=== PATIENT | female | born 1955 | race Caucasian/White ===

== ENCOUNTER 2016-05-30 11:04 | Emergency (ER) | payer OTHER ==
[~2016-05-30] VITALS: Ht 154.9 cm; Wt 63.1 kg
[~2016-05-30 11:04] MED LIST: ADVIL200 MG PO; ALDACTONE25 MG PO; AMANTADINE100 MG NG; AMLODIPINE BESYL5 MG PO; ARTIFICIALS TEA30 ML LEFT EYE; ATROVENT H200 INHALA IH; AVENTYL,PAMELOR10 MG; B COMPLETE1 EACH PO; BUSPIRONE HCL10 MG PO; CALCIUM 500 MG1 EAC1 PO; CALCIUM 500 MG1 EACH PO; CAMPRAL333 MG PO; CATAPRES0.1 MG PO; CHLORPROMAZINE; CIPRO500 MG PO; CLONAZEPAM0.5 MG PO; CLONAZEPAM1 MG; CLONAZEPAM1 MG PO; CLONIDINE HCL0.1 MG NG; CLONIDINE HCL0.1 MG PO; CO Q-10100 MG PO; COLACE100 MG NG; COLACE100 MG PO; CORGARD20 MG PO; CYMBALTA60 MG PO; Chronulac,Cephulac,Enulose 20 gm/30 ml PO; DAILY VALUE1 EACH PO; DAILY VITAMIN1 EAC8 PO; DENTA 5000 PLUS51 GM DT; DESYREL 150 MG150 MG PO; DESYREL100 MG PO; DIAZEPAM2 MG PO; DIAZEPAM5 MG/1 M2 NG; DYRENIUM 50 MG50 MG; FEROSUL325 MG PO; FLEET ENEMA-AD118 ML PR; FLEXERIL10 MG PO; FOLIC ACID1 MG IV; FOLIC ACID1 MG PO; GENERLAC10 GM/15 M PO; HYDROCODON-ACE1 EAC5 PO; HYDROCODON-ACE1 EAC7 PO; HYDROPHOR OINT454 GM TP; K-DUR20 MEQ PO; KLONOPIN1 MG PO; KLOR-CON 1010 ME1 PO; LACTULOSE10 GM/151 NG; LASIX20 MG PO; LASIX40 MG NG; LEVAQUIN250 MG PO; LEVOTHYROXINE50 MCG PO; LEVOXYL50 MCG PO; LIDODERM 5% P1 PATCH TD; LISINOPRIL-HCT1 EAC3 PO; LOPRESSOR25 MG PO; MAGNESIUM GLUC200 MG PO; MAGNESIUM100 MG PO; METHADONE5 MG NG; METOPROLOL TART25 MG PO; NADOLOL20 MG PO; NATURAL BALANCE15 ML BOTH EYES; NEURONTIN300 MG PO; NITRO-BID30 GM TP; NORCO 10/3251 TABLET PO; ONE A DAY WOME EAC PO; OXYCODONE HCL5 M1 NG; OXYCODONE HCL5 M1 PO; PANTOPRAZOLE SO40 MG PO; PAROXETINE HCL40 MG PO; PAXIL10 MG PO; PAXIL40 MG PO; PHENERGAN25 MG PO; POTASSIUM CHLO10 ME3 PO; PREDNISONE10 MG PO; QUETIAPINE FUMA50 MG PO; SENNA8.6 MG NG; SENNA8.6 MG PO; SEROQUEL50 MG PO; SPIRONOLACTONE25 MG PO; SYMMETREL100 M1 PO; SYNTHROID50 MCG PO; THIAMINE HCL100 MG IV; THIAMINE HCL100 MG PO; TRAZODONE HCL100 MG PO; TRAZODONE HCL50 MG PO; VALIUM; VICODIN 5-3001 EACH PO; VITAMIN A10000 UNIT PO; VITAMIN D31000 UNIT PO; WELLBUTRIN SR150 MG PO; ZITHROMAX Z-PA250 MG PO
[2016-05-30 13:19] LABS: BASOPHIL COUNT 0.1 K/uL (0-0.1); EOSINOPHIL COUNT 0.3 K/uL (0-0.3); HEMATOCRIT 43.9 % (36.0-46.0); IMMATURE GRANULOCYTE (%) 0.2 % (0.0-0.7); IMMATURE GRANULOCYTE COUNT 0.2 K/uL; LYMPHOCYTE COUNT 2.5 K/uL (1.0-2.8); MCH 31.1 PG (29.0-34.0); MCHC 34.2 G/DL (30.0-36.0); MCV 91.1 FL (83-99); MEAN PLAT.VOLUME 11.4 uM^3 (9.5-12.4); MONOCYTE (%) 8.8 % (3-12); NEUTROPHIL (%) 64.3 % (45-76); PLATELET COUNT 212 K/uL (156-360); RBC DIS.WIDTH-CV 17.1 % (11.8-14.6); RBC DIS.WIDTH-SD 55.1 % (39-53); RED BLOOD COUNT 4.82 M/uL (3.80-5.20); WHITE BLOOD COUNT 10.9 K/uL (4.1-10.2)
[2016-05-30 13:29] LABS: CHLORIDE 105 mEq/L (99-109); POTASSIUM 4.3 mEq/L (3.7-5.4); SODIUM 142 mEq/L (136-147)
[2016-05-30 13:31] LABS: GLUCOSE 72 mg/dL (70-99); MAGNESIUM 2.2 mg/dL (1.3-2.7)
[2016-05-30 13:32] LABS: ANION GAP 7 MEQ/L (2-14)
[2016-05-30 13:33] LABS: TOTAL BILIRUBIN 0.5 mg/dL (0.0-1.0)
[2016-05-30 13:34] LABS: ALKALINE PHOSPHATASE 144 IU/L (3-129); SERUM ETHYL ALCOHOL < 10 mg/dL
[2016-05-30 13:35] LABS: GFR ESTIMATE (CALCULATED) > 59 mL/min/
[2016-05-30 13:36] LABS: UREA NITROGEN (BUN) 15 mg/dL (9-23)
[2016-05-30 14:12] LABS: HEMATOLOGY COMMENT 1 SMEAR COMPATIBLE
[2016-05-30 14:32] LABS: ERTH.SED.RATE 19 MM/HR (0-30)
[2016-05-30 14:53] LABS: AMPHETAMINE NEGATIVE (500 ng/mL); BARBITURATES NEGATIVE (200 ng/mL); BENZODIAZEPINES NEGATIVE (150 ng/mL); COCAINE NEGATIVE (150 ng/mL); INTERNAL CONTROLS VALID? YES; METHADONE NEGATIVE (200 ng/mL); METHAMPHETAMINE NEGATIVE (500 ng/mL); OPIATES (MORPHINE) NEGATIVE (100 ng/mL); OXYCODONE NEGATIVE (100 ng/mL); PHENCYCLIDINE NEGATIVE (25 ng/mL); PROPOXYPHENE NEGATIVE (300 ng/mL); THC CANNABINOIDS NEGATIVE (50 ng/mL); TRICYCLIC ANTIDEPRESSANTS NEGATIVE (300 ng/mL)
[2016-05-30 15:44] LABS: ADD MIUA? NO; BILIRUBIN NEGATIVE; BLOOD NEGATIVE; COLOR YELLOW ((YELLOW)); GLUCOSE (STRIP) NEGATIVE; KETONES NEGATIVE; LEUKOCYTES NEGATIVE; NITRITE NEGATIVE; PROTEIN (STRIP) NEGATIVE; SPECIFIC GRAVITY 1.008 (1.000-1.030); UROBILINOGEN 0.2 MG/DL (0.2-1.0)
[2016-05-30] MEDS ORDERED: VALIUM5 MG PO (16:42)
[2016-05-30] MEDS ORDERED: ANTIVERT25 MG PO (16:42)
[2016-05-30] MEDS ORDERED: PERCOCET 5/31 TABLET PO (16:42)
[2016-05-30 17:03] VITALS: BP 178/89
== END 2016-05-30 17:04 | disposition home or self-care (01) ==
LOC: EME 11:04
PROVIDERS: Physician Assistant
DX: G44.209 Tension-type headache, unspecified, not intractable (principal); G89.29 Other chronic pain; M50.30 Other cervical disc degeneration, unspecified cervical region; M62.830 Muscle spasm of back; R42 Dizziness and giddiness; Z87.820 Personal history of traumatic brain injury; Z91.81 History of falling; I10 Essential (primary) hypertension; E03.9 Hypothyroidism, unspecified; F17.200 Nicotine dependence, unspecified, uncomplicated
CPT/HCPCS: 70450; 73030; 80053; 81003; 82140; 82607; 83735; 84443; 85025; 85651; 93005; 99281; 99285; G0480

== ENCOUNTER 2017-05-08 13:50 | Emergency (ER) | payer OTHER ==
[~2017-05-08] VITALS: Ht 154.9 cm; Wt 67.0 kg
[~2017-05-08 13:50] MED LIST changes: +ANTIVERT25 MG PO; +PERCOCET 5/31 TABLET PO; +VALIUM5 MG PO
[2017-05-08 14:20] LABS: BASOPHIL (%) 1.1 % (0-1); BASOPHIL COUNT 0.1 K/uL (0-0.1); EOSINOPHIL (%) 4.9 % (0-5); EOSINOPHIL COUNT 0.3 K/uL (0-0.3); HEMATOCRIT 45.2 % (36.0-46.0); IMMATURE GRANULOCYTE (%) 0.2 % (0.0-0.7); LYMPHOCYTE (%) 38.6 % (15-42); LYMPHOCYTE COUNT 2.5 K/uL (1.0-2.8); MCH 31.8 PG (29.0-34.0); MCHC 35.4 G/DL (30.0-36.0); MCV 89.9 FL (83-99); MONOCYTE (%) 11.3 % (3-12); MONOCYTE COUNT 0.7 K/uL (0-0.8); NEUTROPHIL (%) 43.9 % (45-76); NEUTROPHIL COUNT 2.9 K/uL (1.8-6.4); PLATELET COUNT 247 K/uL (156-360); RBC DIS.WIDTH-SD 48.9 % (39-53); RED BLOOD COUNT 5.03 M/uL (3.80-5.20); WHITE BLOOD COUNT 6.6 K/uL (4.1-10.2)
[2017-05-08 14:33] LABS: CHLORIDE 107 mEq/L (99-109); SODIUM 140 mEq/L (136-147)
[2017-05-08 14:35] LABS: GLUCOSE 81 mg/dL (70-99); TOTAL PROTEIN 6.8 g/dL (6.4-8.3)
[2017-05-08 14:37] LABS: TOTAL BILIRUBIN 0.9 mg/dL (0.0-1.0)
[2017-05-08 14:38] LABS: ALKALINE PHOSPHATASE 107 IU/L (3-129)
[2017-05-08 14:39] LABS: CREATININE 0.9 mg/dL (0.6-1.3); GFR ESTIMATE (CALCULATED) > 59 mL/min/
[2017-05-08 14:40] LABS: AST (GOT) 34 IU/L (2-34); UREA NITROGEN (BUN) 7 mg/dL (9-23)
[2017-05-08 14:40] LABS: TROP-I INTERPRETATION NEGATIVE; TROPONIN-I < 0.01 ng/mL (0.0-0.30)
[2017-05-08 14:41] LABS: ALT (GPT) 23 IU/L (3-49)
[2017-05-08 14:42] LABS: CREATINE KINASE 97 IU/L (1-294); TOTAL CK 97 IU/L (1-294)
[2017-05-08 14:48] LABS: CK-MB 3.7 ng/mL (0.0-4.9); CKMB RELATIVE INDEX 3.8 (0.0-3.9)
[2017-05-08 15:30] LABS: APPEARANCE CLEAR ((CLEAR)); BILIRUBIN NEGATIVE; BLOOD NEGATIVE; COLOR YELLOW ((YELLOW)); GLUCOSE (STRIP) NEGATIVE; KETONES NEGATIVE; LEUKOCYTES NEGATIVE; NITRITE NEGATIVE; PROTEIN (STRIP) NEGATIVE; SPECIFIC GRAVITY 1.009 (1.000-1.030); UCUL ADDED? NO
[2017-05-08 17:13] VITALS: BP 152/81
== END 2017-05-08 17:13 | disposition home or self-care (01) ==
LOC: EME 13:50
PROVIDERS: Emergency Medicine
DX: R53.1 Weakness (principal); M54.6 Pain in thoracic spine; Z87.820 Personal history of traumatic brain injury; M79.7 Fibromyalgia; I10 Essential (primary) hypertension; J45.909 Unspecified asthma, uncomplicated; F32.9 Major depressive disorder, single episode, unspecified; E03.9 Hypothyroidism, unspecified; F41.9 Anxiety disorder, unspecified; R56.9 Unspecified convulsions; F17.200 Nicotine dependence, unspecified, uncomplicated; Z88.2 Allergy status to sulfonamides; Z88.8 Allergy status to other drugs, medicaments and biological substances
CPT/HCPCS: 70450; 71046; 72070; 80053; 81003; 82550; 82553; 84484; 85025; 86850; 86900; 86901; 93005; 99281; 99284

== ENCOUNTER 2017-11-12 14:52 | Emergency (ER) | payer SELFPAY ==
[~2017-11-12] VITALS: Ht 154.9 cm; Wt 58.9 kg
[2017-11-12 14:52] VITALS: BP 146/98
== END 2017-11-12 16:40 | disposition left against medical advice (07) ==
LOC: EME 14:52
DX: R53.1 Weakness (principal); Z53.21 Procedure and treatment not carried out due to patient leaving prior to being seen by health care provider